=== PATIENT | female | born 1970 | race Caucasian/White ===

== ENCOUNTER 2023-10-30 22:04 | Emergency (ER) | payer OTHER ==
[~2023-10-30] VITALS: Ht 157.5 cm; Wt 77.1 kg
[~2023-10-30 22:04] MED LIST: ACET325; ACET500 PO; ALBU90OI INH; AMOX500 PO; Amoxicillin500 MG PO; Bactrim Ds Tab1 EACH PO; CEPH500 PO; CETI10 PO; CLOT1TC TOP; DESO.25TC TOP; DIPH50 PO; HYDACE5 PO; IBUP800 PO; LOSA50 PO; Norco 5-325 Ta1 EACH PO; OMEP20ER PO; PENVK500 PO; PROCODE120 PO; PROM25 PO; Percocet 5-3251 EACH PO; RXAMOX500 PO; RXCLIN PO; RXPENVK250 PO; SUCR1 PO; SULTRIDS PO
[2023-10-30 22:17] VITALS: BP 184/110
[2023-10-30 22:40] LABS: BASOPHILS ABSOLUTE AUTO 0.07 K/mm3 (0.00-0.23); BASOPHILS PERCENT AUTO 1 % (0-2); EOSINOPHILS ABSOLUTE AUTO 0.14 K/mm3 (0.00-0.68); EOSINOPHILS PERCENT AUTO 1 % (0-6); Hematocrit 35.1 % (33.0-51.0); Hemoglobin 10.2 g/dL (11.5-16.0); IMMATURE GRAN ABSOLUTE AUTO 0.04 K/mm3 (0.00-0.10); IMMATURE GRAN PERCENT AUTO 0 % (0-1); LYMPHOCYTES ABSOLUTE AUTO 2.94 K/mm3 (0.84-5.20); LYMPHOCYTES PERCENT AUTO 26 % (21-46); MONOCYTES ABSOLUTE AUTO 0.64 K/mm3 (0.16-1.47); MONOCYTES PERCENT AUTO 6 % (4-13); Mean Corpuscular HGB 22.1 pg (26.0-34.0); Mean Corpuscular HGB Conc 29.1 g/dL (31.5-36.5); Mean Corpuscular Volume 76 fL (80-100); Mean Platelet Volume 9.9 fL (9.1-12.4); NEUTROPHILS ABSOLUTE AUTO 7.29 K/mm3 (1.96-9.15); NEUTROPHILS PERCENT AUTO 66 % (41-73); Platelet Count 454 K/mm3 (150-400); RDW Standard Deviation 44.3 fL (35.1-46.3); Red Blood Cell Count 4.61 M/mm3 (3.80-5.20); White Blood Cell Count 11.12 K/mm3 (4.00-11.30)
[2023-10-30 23:04] LABS: Albumin, Blood 3.8 g/dL (3.4-5.0); Bilirubin, Total 0.4 mg/dL (0.1-1.0); Bun/Creatinine Ratio 27.1 (12.0-20.0); Calcium, Blood 9.7 mg/dL (8.5-10.1); Creatinine, Blood 0.96 mg/dL (0.40-1.00); Globulin, Blood 3.9 g/dL (2.2-4.0); Potassium, Blood 4.2 mmol/L (3.5-5.5); Total Protein, Blood 7.7 g/dL (6.4-8.2)
== END 2023-10-30 23:35 | disposition left against medical advice (07) ==
LOC: ER 22:04
PROVIDERS: Student in an Organized Health Care Education/Training Program
DX: Z53.29 Procedure and treatment not carried out because of patient's decision for other reasons (principal)
CPT/HCPCS: 71046; 80053; 84484; 85025; 93005; 93010

== ENCOUNTER 2023-11-04 02:09 | Emergency (ER) | payer OTHER ==
[~2023-11-04] VITALS: Ht 157.5 cm; Wt 77.1 kg
[2023-11-04 02:17] VITALS: BP 190/104
[2023-11-04] MEDS ORDERED: Famotidine 10 MG/ML 2ML Vial IV ONE (03:25)
[2023-11-04] MEDS ORDERED: Mag Hydrox/AL Hydrox/Simeth 30 ML UDC PO ONE (03:25)
[2023-11-04] MEDS ORDERED: Lidocaine 2% Viscous Soln 15 ML UDC PO ONE (03:25)
[2023-11-04] MEDS ORDERED: FAMO20 PO (03:27)
[2023-11-04] MEDS ORDERED: ALMACONE SUSPE355 ML PO (03:27)
[2023-11-04] MEDS ORDERED: Famotidine 20 MG Tab PO ONE (03:30)
== END 2023-11-04 03:44 | disposition home or self-care (01) ==
LOC: ER 02:09
DX: K44.9 Diaphragmatic hernia without obstruction or gangrene (principal); K21.9 Gastro-esophageal reflux disease without esophagitis; Z79.899 Other long term (current) drug therapy; Z88.0 Allergy status to penicillin
CPT/HCPCS: 99283; A9270